=== PATIENT | male | born 1950 ===

== ENCOUNTER → 2022-06-04 16:13 | Outpatient (ROUT) | payer OTHER, SELFPAY ==
[2022-06-04 17:04] LABS: Prothrombin Time 11.7 SECONDS (10.1-12.7)
== END ==
PROVIDERS: Family Provider Family Medicine; PCP Family Medicine; Visit Provider Family Medicine
DX: D69.2 Other nonthrombocytopenic purpura (principal)
CPT/HCPCS: 85610